=== PATIENT | female | born 1990 | race Caucasian/White ===

== ENCOUNTER 2018-03-09 03:30 | Emergency (ER) | payer MEDICAID ==
--- NOTE | 2018-03-09 03:51 | EDPHY ---
H & P Stated Complaint: N,V,ACID REFLUS NOT SLEEPING, 20 WKS Time Seen by Provider: 03/09/18 03:51 HPI/ROS: HPI CHIEF COMPLAINT: Hyperemesis gravidarum. HISTORY OF PRESENT ILLNESS: 28-year-old female presents emergency room nausea vomiting. She is currently 20 weeks . This is her 4th . She does not have any living children. She presents emergency room stating that she has had nausea vomiting in since 5 weeks. However the past few days it has gotten worse. Persistent vomiting no bile no blood. Denies chest pain or shortness of breath, denies fever, denies urinary symptoms, denies vaginal discharge or vaginal bleeding. No significant abdominal pain. Could not sleep last night. [facility]: [facility]. Past Medical History: Denies medical history except hyperemesis gravidarum Past Surgical History: No recent surgical history Social History: Denies daily use drugs alcohol tobacco. Family History: Noncontributory ROS REVIEW OF SYSTEMS: 10 Systems were reviewed and negative with the exception of the elements mentioned in the history of present illness. Exam Constitutional nontoxic no acute distress but noted be tachycardic at triage triage nursing summary reviewed, vital signs reviewed, awake/alert. Eyes normal conjunctivae and sclera, EOMI, PERRLA. HENT normal inspection, atraumatic, moist mucus membranes, no epistaxis, neck supple/ no meningismus, no raccoon eyes. Respiratory clear to auscultation bilaterally, normal breath sounds, no respiratory distress, no wheezing. Cardiovascular tachycardia, regular rhythm, no murmur, no edema, distal pulses normal. Gastrointestinal gravid uterus approximately umbilicus nontender, soft, non- tender, no rebound, no guarding, normal bowel sounds, no distension, no pulsatile mass. Genitourinary no CVA tenderness. Musculoskeletal no midline vertebral tenderness, full range of motion, no calf swelling, no tenderness of extremities, no meningismus, good pulses, neurovascularly intact. Skin pink, warm, & dry, no rash, skin atraumatic. Neurologic awake, alert and oriented x 3, AAOx3, moves all 4 extremities equally, motor intact, sensory intact, CN II-XII intact, normal cerebellar, normal vision, normal speech. Psychiatric normal mood/affect. Heme/Lymph/Immune no lymphadenopathy. Differential Diagnosis: Includes but is not limited to in a particular order acute dehydration electrolyte disturbance, hyperemesis gravidarum count, infection, UTI nausea vomiting . Medical Decision Making: Plan for this patient IV establishment IV fluid bolus 2 L normal saline, IV Zofran for nausea, check basic blood work, urinalysis and re-evaluate. Re-evaluation: 0603: Patient re-evaluated. Patient in no acute distress. Abdomen soft nontender. She has not had any vomiting here. 0632: Patient re-evaluate feeling much better. She received IV fluids. Nausea medication. She has not had any vomiting here. She has been able tolerate p.o.. Her urinalysis reviewed is a dirty catch. Will obtain a clean sample. I do feel that she can be discharged safely. Follow up with her OBGYN. Abdomen is soft nontender. Return precautions discussed with the patient. Clinical diagnosis is a his hyperemesis gravidarum. Dehydration. Return if worse. Phenergan prescription and Phenergan suppositories. Source: Patient - Personal History LMP (Females 10-55): EDC: 07/23/18 Current Tetanus/Diphtheria Vaccine: Yes Current Tetanus Diphtheria and Acellular Pertussis (TDAP): Yes - Medical/Surgical History Hx Asthma: No Hx Chronic Respiratory Disease: No Hx Diabetes: No Hx Cardiac Disease: No Hx Renal Disease: No Hx Cirrhosis: No Hx Alcoholism: No Hx HIV/AIDS: No Hx Splenectomy or Spleen Trauma: No Other PMH: THYROID NODULE REMOVED - Social History Smoking Status: Former smoker Constitutional: Initial Vital Signs Temperature (C) 36.7 C 03/09/18 03:32 Heart Rate 128 H 03/09/18 03:32 Respiratory Rate 18 03/09/18 03:32 Blood Pressure 111/78 03/09/18 03:32 O2 Sat (%) 95 03/09/18 03:32 O2 Delivery Mode Room Air Allergies/Adverse Reactions: No Known Allergies Allergy (Verified 03/09/18 03:35) Home Medications: Medication Instructions Recorded Vits96/Iron Fum/Folic 1 each PO 03/09/18 [ Tablet] Promethazine 25Mg Supp Prepk#4 1 btl TAKEHOME BID #1 btl 03/09/18 [Phenergan 25Mg Supp Prepack#4] Promethazine HCl [Phenergan 25mg 25 mg PO BID #10 tab 03/09/18 (*)] diphenhydrAMINE HCL [Unisom] 50 mg PO DAILY 03/09/18 Medical Decision Making - Data Points Laboratory Results: Laboratory Results 03/09/18 03:50 03/09/18 03:50 03/09/18 03/09/18 03/09/18 06:00 03:50 03:50 WBC 16.39 10^3/uL H 10^3/uL (3.80-9.50) RBC 4.72 10^6/uL 10^6/uL (4.18-5.33) Hgb 14.6 g/dL g/dL (12.6-16.3) Hct 41.7 % % (38.0-47.0) MCV 88.3 fL fL (81.5-99.8) MCH 30.9 pg pg (27.9-34.1) MCHC 35.0 g/dL g/dL (32.4-36.7) RDW 13.1 % % (11.5-15.2) Plt Count 295 10^3/uL 10^3/uL (150-400) MPV 9.7 fL fL (8.7-11.7) Neut % (Auto) 85.6 % H % (39.3-74.2) Lymph % (Auto) 8.5 % L % (15.0-45.0) [place] % (Auto) 5.2 % % (4.5-13.0) Eos % (Auto) 0.1 % L % (0.6-7.6) Baso % (Auto) 0.2 % L % (0.3-1.7) Nucleat RBC Rel Count 0.0 % % (0.0-0.2) Absolute Neuts (auto) 14.03 10^3/uL H 10^3/uL (1.70-6.50) Absolute Lymphs (auto) 1.39 10^3/uL 10^3/uL (1.00-3.00) Absolute Monos (auto) 0.85 10^3/uL H 10^3/uL (0.30-0.80) Absolute Eos (auto) 0.01 10^3/uL L 10^3/uL (0.03-0.40) Absolute Basos (auto) 0.04 10^3/uL 10^3/uL (0.02-0.10) Absolute Nucleated RBC 0.00 10^3/uL 10^3/uL (0-0.01) Immature Gran % 0.4 % % (0.0-1.1) Immature Gran # 0.07 10^3/uL 10^3/uL (0.00-0.10) Sodium 139 mEq/L mEq/L (135-145) Potassium 3.5 mEq/L mEq/L (3.3-5.0) Chloride 105 mEq/L mEq/L (97-110) Carbon Dioxide 18 mEq/l L mEq/l (22-31) Anion Gap 16 mEq/L H mEq/L (6-14) BUN 9 mg/dL mg/dL (7-23) Creatinine 0.5 mg/dL L mg/dL (0.6-1.0) Estimated GFR > 60 Glucose 109 mg/dL H mg/dL (70-100) Calcium 10.2 mg/dL mg/dL (8.5-10.4) Total Bilirubin 1.1 mg/dL mg/dL (0.1-1.4) Conjugated Bilirubin 0.2 mg/dL mg/dL (0.0-0.5) Unconjugated Bilirubin 0.9 mg/dL mg/dL (0.0-1.1) AST 18 IU/L IU/L (14-46) ALT 19 IU/L IU/L (9-52) Alkaline Phosphatase 69 IU/L IU/L (38-126) Total Protein 8.0 g/dL g/dL (6.3-8.2) Albumin 4.5 g/dL g/dL (3.5-5.0) Lipase 47 IU/L IU/L (23-300) Urine Color YELLOW Urine Appearance MODERATELY TURBID Urine pH 5.0 (5.0-7.5) Ur Specific [place] 1.027 (1.002-1.030) Urine Protein 2+ H (NEGATIVE) Urine Ketones 2+ H (NEGATIVE) Urine Blood NEGATIVE (NEGATIVE) Urine Nitrate NEGATIVE (NEGATIVE) Urine Bilirubin NEGATIVE (NEGATIVE) Urine Urobilinogen NEGATIVE EU EU (0.2-1.0) Ur Leukocyte Esterase 1+ H (NEGATIVE) Urine RBC NONE SEEN /hpf /hpf (0-3) Urine WBC 50-182 /hpf H /hpf (0-3) Ur Epithelial Cells 3+ /lpf H /lpf (NONE-1+) Urine Mucus 4+ /lpf H /lpf (NONE-1+) Urine Glucose 1+ H (NEGATIVE) Medications Given: Discontinued Medications Al Hydroxide/Mg Hydroxide (Maalox Susp) 30 ml PO EDNOW ONE Stop: 03/09/18 04:17 Last Admin: 03/09/18 04:27 Dose: 30 ml Sodium Chloride (Ns) 1,000 mls @ 0 mls/hr IV EDNOW ONE; Wide Open PRN Reason: Protocol Stop: 03/09/18 03:54 Last Admin: 03/09/18 04:02 Dose: 1,000 mls Sodium Chloride (Ns) 1,000 mls @ 0 mls/hr IV EDNOW ONE; Wide Open PRN Reason: Protocol Stop: 03/09/18 03:54 Last Admin: 03/09/18 04:02 Dose: 1,000 mls Lidocaine (Lidocaine 2% Viscous) 5 ml PO EDNOW ONE Stop: 03/09/18 04:18 Last Admin: 03/09/18 04:28 Dose: 5 ml Ondansetron HCl (Zofran) 4 mg IVP EDNOW ONE Stop: 03/09/18 03:54 Last Admin: 03/09/18 04:03 Dose: 4 mg Departure - Departure Disposition: Home, Routine, Self-Care Clinical Impression: Hyperemesis gravidarum Condition: Good Instructions: Hyperemesis Gravidarum (ED) Additional Instructions: 1. Please follow up with your OBGYN 2. Return emergency room if there is worsening nausea vomiting abdominal pain fever worsening symptoms. 3. Phenergan. Referrals: NONE *PRIMARY CARE P,. [Primary Care Provider] - As per Instructions Michelle Washington MD [Medical Doctor] - As per Instructions Prescriptions: Promethazine 25Mg Supp Prepk#4 [Phenergan 25Mg Supp Prepack#4] 1 btl TAKEHOME BID #1 btl Promethazine HCl [Phenergan 25mg (*)] 25 mg PO BID #10 tab
[2018-03-09] MEDS ORDERED: NS 1,000 ML IV ONE ×2 (03:53)
[2018-03-09] MEDS ORDERED: ONDANSETRON 4 MG/2 ML VIAL IVP ONE (03:53)
[2018-03-09 04:03] LABS: PLATELET COUNT 295 10^3/uL (150-400)
[2018-03-09] MEDS ORDERED: MAG HYDROX/AL HYDROX/SIMETH 30 ML UDCUP PO ONE (04:16)
[2018-03-09] MEDS ORDERED: LIDOCAINE 2% VISCOUS 15 ML UDCUP PO ONE (04:17)
[2018-03-09] MEDS ORDERED: LIDOCAINE 2% VISCOUS 15 ML UDCUP ONE (04:23)
[2018-03-09] MEDS ORDERED: HYOSCYAMINE SULFATE 0.125 MG TAB ONE (04:23)
[2018-03-09] MEDS ORDERED: MAG HYDROX/AL HYDROX/SIMETH 30 ML UDCUP ONE (04:23)
[2018-03-09 07:02] VITALS: BP 119/81
== END 2018-03-09 07:08 | disposition home or self-care (01) ==
DX: O21.0 Mild hyperemesis gravidarum (principal); E86.0 Dehydration; Z3A.20 20 weeks gestation of pregnancy
CPT/HCPCS: 96374; J2405

== ENCOUNTER 2018-04-03 16:27 | Emergency (ER) | payer MEDICAID ==
[2018-04-03] MEDS ORDERED: NS 1,000 ML IV ONE ×2 (17:41)
[2018-04-03] MEDS ORDERED: PROMETHAZINE HCL 25 MG/ML INJ IVP ONE (17:42)
--- NOTE | 2018-04-03 17:42 | EDPHY ---
H & P Stated Complaint: n/v, 23 weeks preg Time Seen by Provider: 04/03/18 17:37 HPI/ROS: HPI: This is a 28-year-old female who presents with Chief Complaint: n/v, 23 weeks preg Location: GI Quality: Nausea, vomiting Duration: 24 hr Signs and Symptoms: no fever, + nausea, + vomiting, no hematemesis, no blood in stool, no abdominal bloating, no diarrhea, no back pain, no urinary symptoms, no vaginal bleeding/discharge, no indigestion, no chest pain, no shortness of breath, no abdominal pain Timing: Acute on chronic Severity: Moderate Context: Patient is 23 weeks , presents with intractable nausea and vomiting over the last 24 hr. Patient reports that she is vomiting ever hour. She has not ate or drank anything in 24 hr. Patient has only urinated once. Was seen in this emergency room on 03/09/2018 and received IV fluids and IV promethazine. He was given prescription for promethazine but when her significant other went to fill it at the pharmacy they told her that they were unable to fill it as "it was a hospital prescription." Patient reports that she has no fever, vaginal bleeding, vaginal discharge, abdominal pain. She reports that over the last several weeks she has had come to the emergency room several times for hyperemesis gravidarum. She has an appointment tomorrow at the [facility]. Blood type is B-positive. Taking vitamins. Modifying Factors: Comment: ROS: A comprehensive 10 system review of systems is otherwise negative aside from elements mentioned in the history of present illness. MEDICAL/SURGICAL/SOCIAL HISTORY: Medical history: Generally healthy. Does not take any regular medications. Surgical history: Thyroidectomy Social history: Former smoker. Denies drug use. Family history noncontributory. CONSTITUTIONAL: Extremely well-appearing and nontoxic adult white female, holding emesis basin with yellowish green emesis in it; awake and alert, no obvious distress HEENT: Atraumatic and normocephalic, PERRL, EOMI. Nares patent; no rhinorrhea; no nasal mucosal edema. Tympanic membranes clear. Oropharynx clear, no exudate and moist pink mucosa. Airway patent. No lymphadenopathy. No meningismus. Cardiovascular: Normal S1/S2, regular rate, regular rhythm, without murmur rub or gallop. PULMONARY/CHEST: Symmetrical and nontender. Clear to auscultation bilaterally. Good air movement. No accessory muscle usage. ABDOMEN: Soft, gravid, nontender, no rebound, no guarding, no peritoneal signs , no masses or organomegaly. No CVAT. EXTREMITIES: 2/2 pulses, strength 5/5, no deformities, no clubbing, no cyanosis or edema. NEUROLOGICAL: no focal neuro deficits. GCS 15. SKIN: Warm and dry, no erythema. no rash. Good capillary refill. Source: Patient, Old records Exam Limitations: No limitations - Personal History LMP (Females 10-55): Current Tetanus/Diphtheria Vaccine: Yes Current Tetanus Diphtheria and Acellular Pertussis (TDAP): Yes - Medical/Surgical History Hx Asthma: No Hx Chronic Respiratory Disease: No Hx Diabetes: No Hx Cardiac Disease: No Hx Renal Disease: No Hx Cirrhosis: No Hx Alcoholism: No Hx HIV/AIDS: No Hx Splenectomy or Spleen Trauma: No Other PMH: THYROID NODULE REMOVED - Social History Smoking Status: Former smoker Constitutional: Initial Vital Signs Temperature (C) 36.7 C 04/03/18 16:39 Heart Rate 81 04/03/18 16:39 Respiratory Rate 16 04/03/18 16:39 Blood Pressure 127/92 H 04/03/18 16:39 O2 Sat (%) 100 04/03/18 16:39 O2 Delivery Mode Room Air Allergies/Adverse Reactions: No Known Allergies Allergy (Verified 04/03/18 16:38) Home Medications: Medication Instructions Recorded Vits96/Iron Fum/Folic 1 each PO 03/09/18 [ Tablet] Nitrofurantoin Monohyd/M-Cryst 100 mg PO BID 7 Days capsule 04/03/18 [Macrobid 100 mg Capsule] Promethazine HCl 25 mg PO Q8 PRN #12 tablet 04/03/18 Medical Decision Making ED Course/Re-evaluation: Vital signs reviewed and stable upon arrival. No systemic signs. IV access and laboratory studies along with urinalysis obtained. Abdomen is soft and nontender. Doubt surgical process. No imaging indicated. Given 2 L normal saline and IV promethazine 12.5 mg 1815: Notified by RN that heart tones 130s Labs reviewed and no hypokalemia/Acute kidney injury. WBC 14 K likely reactive. No signs of anemia. Urinalysis shows ketones, WBCs, 1+ bacteria; trace LE; sent for urine culture; started on Macrobid 2000: Reassessed patient who is drinking fluids at bedside. Discuss bacteria in urine and Macrobid prescription. Given Phenergan prepack and prescription for same. Patient will follow up with OBGYN tomorrow as previously directed. No signs of sepsis/pyelonephritis. This patient was seen under the supervision of my secondary supervising physician. I evaluated care for this patient independently. Discussed this patient with Dr. Carranza. Differential Diagnosis: Differential diagnosis includes but is not limited to miscarriage, hyperemesis gravidarum, gastroenteritis, obstruction, pelvic inflammatory disease, electrolyte imbalance, appendicitis, pancreatitis, biliary disease, pyelonephritis. - Data Points Laboratory Results: Laboratory Results 04/03/18 17:44 04/03/18 17:44 04/03/18 04/03/18 04/03/18 19:15 17:44 17:44 WBC 14.51 10^3/uL H 10^3/uL (3.80-9.50) RBC 4.58 10^6/uL 10^6/uL (4.18-5.33) Hgb 14.4 g/dL g/dL (12.6-16.3) Hct 40.9 % % (38.0-47.0) MCV 89.3 fL fL (81.5-99.8) MCH 31.4 pg pg (27.9-34.1) MCHC 35.2 g/dL g/dL (32.4-36.7) RDW 13.2 % % (11.5-15.2) Plt Count 260 10^3/uL 10^3/uL (150-400) MPV 10.1 fL fL (8.7-11.7) Neut % (Auto) 92.7 % H % (39.3-74.2) Lymph % (Auto) 5.5 % L % (15.0-45.0) [place] % (Auto) 1.0 % L % (4.5-13.0) Eos % (Auto) 0.0 % L % (0.6-7.6) Baso % (Auto) 0.2 % L % (0.3-1.7) Nucleat RBC Rel Count 0.0 % % (0.0-0.2) Absolute Neuts (auto) 13.45 10^3/uL H 10^3/uL (1.70-6.50) Absolute Lymphs (auto) 0.80 10^3/uL L 10^3/uL (1.00-3.00) Absolute Monos (auto) 0.14 10^3/uL L 10^3/uL (0.30-0.80) Absolute Eos (auto) 0.00 10^3/uL L 10^3/uL (0.03-0.40) Absolute Basos (auto) 0.03 10^3/uL 10^3/uL (0.02-0.10) Absolute Nucleated RBC 0.00 10^3/uL 10^3/uL (0-0.01) Immature Gran % 0.6 % % (0.0-1.1) Immature Gran # 0.09 10^3/uL 10^3/uL (0.00-0.10) Sodium 137 mEq/L mEq/L (135-145) Potassium 3.8 mEq/L mEq/L (3.3-5.0) Chloride 106 mEq/L mEq/L (97-110) Carbon Dioxide 18 mEq/l L mEq/l (22-31) Anion Gap 13 mEq/L mEq/L (6-14) BUN 9 mg/dL mg/dL (7-23) Creatinine 0.5 mg/dL L mg/dL (0.6-1.0) Estimated GFR > 60 Glucose 142 mg/dL H mg/dL (70-100) Calcium 10.2 mg/dL mg/dL (8.5-10.4) Urine Color YELLOW Urine Appearance HAZY Urine pH 6.0 (5.0-7.5) Ur Specific [place] 1.031 H (1.002-1.030) Urine Protein 2+ H (NEGATIVE) Urine Ketones 2+ H (NEGATIVE) Urine Blood NEGATIVE (NEGATIVE) Urine Nitrate NEGATIVE (NEGATIVE) Urine Bilirubin NEGATIVE (NEGATIVE) Urine Urobilinogen NEGATIVE EU EU (0.2-1.0) Ur Leukocyte Esterase TRACE H (NEGATIVE) Urine RBC 3-5 /hpf H /hpf (0-3) Urine WBC 25-50 /hpf H /hpf (0-3) Ur Epithelial Cells 2+ /lpf H /lpf (NONE-1+) Ur Renal Epithelial Cell TRACE /hpf H /hpf (NONE SEEN) Urine Bacteria 1+ /hpf H /hpf (NONE SEEN) Urine Mucus 4+ /lpf H /lpf (NONE-1+) Urine Glucose 2+ H (NEGATIVE) Medications Given: Discontinued Medications Sodium Chloride (Ns) 1,000 mls @ 0 mls/hr IV ONCE ONE; Wide Open PRN Reason: Protocol Stop: 04/03/18 17:42 Last Admin: 04/03/18 17:47 Dose: 1,000 mls Sodium Chloride (Ns) 1,000 mls @ 0 mls/hr IV ONCE ONE; Wide Open PRN Reason: Protocol Stop: 04/03/18 17:42 Last Admin: 04/03/18 17:47 Dose: 1,000 mls Nitrofurantoin (Macrobid 100mg Prepack#2) 1 btl TAKEHOME EDNOW ONE PRN Reason: Protocol Stop: 04/03/18 19:42 Last Admin: 04/03/18 20:35 Dose: 1 btl Promethazine HCl (Phenergan) 12.5 mg IVP ONCE ONE Stop: 04/03/18 17:43 Last Admin: 04/03/18 17:48 Dose: 12.5 mg Promethazine HCl (Phenergan 25 Mg Prepack #4) 1 btl TAKEHOME EDNOW ONE Stop: 04/03/18 20:03 Last Admin: 04/03/18 20:34 Dose: 1 btl Departure - Departure Disposition: Home, Routine, Self-Care Clinical Impression: Nausea/vomiting in UTI in Qualifiers: Trimester: second trimester Qualified Code(s): O23.42 - Unspecified infection of urinary tract in , second trimester Condition: Good Instructions: Nausea and Vomiting in (ED), Urinary Tract Infection in (ED) Additional Instructions: Consume a minimum of 8-10 glasses of water or electrolyte fluid replacement drinks that include Gatorade, Powerade, Pedialyte. Eat a bland diet for the next 48 hours and then slowly advance as tolerated. Take Phenergan 1 tab every 6 hours as needed for nausea, vomiting. Take Macrobid as directed for urinary tract infection. Do not skip a dose. Keep follow-up appointment with OBGYN tomorrow. Referrals: PCP Not In,Dictionary [Medical Doctor] - As per Instructions ([facility]) Prescriptions: Nitrofurantoin Monohyd/M-Cryst [Macrobid 100 mg Capsule] 100 mg PO BID 7 Days capsule Promethazine HCl 25 mg PO Q8 PRN #12 tablet PRN Reason: Nausea/Vomiting, Use 1st
[2018-04-03 18:07] LABS: PLATELET COUNT 260 10^3/uL (150-400)
[2018-04-03] MEDS ORDERED: NITROFURANTOIN 100MG PREPACK#2 BTL TAKEHOME ONE (19:41)
[2018-04-03] MEDS ORDERED: PROMETHAZINE 25 MG PREPACK #4 BTL TAKEHOME ONE (20:02)
[2018-04-03 20:32] VITALS: BP 105/50
== END 2018-04-03 20:37 | disposition home or self-care (01) ==
DX: O21.9 Vomiting of pregnancy, unspecified (principal); O23.42 Unspecified infection of urinary tract in pregnancy, second trimester; Z3A.23 23 weeks gestation of pregnancy
CPT/HCPCS: 96374; J2550

== ENCOUNTER 2018-05-06 10:40 | Emergency (ER) | payer MEDICAID ==
--- NOTE | 2018-05-06 11:04 | EDPHY ---
H & P Stated Complaint: n/v Time Seen by Provider: 05/06/18 11:04 - Personal History LMP (Females 10-55): Current Tetanus/Diphtheria Vaccine: Yes Current Tetanus Diphtheria and Acellular Pertussis (TDAP): Yes - Medical/Surgical History Hx Asthma: No Hx Chronic Respiratory Disease: No Hx Diabetes: No Hx Cardiac Disease: No Hx Renal Disease: No Hx Cirrhosis: No Hx Alcoholism: No Hx HIV/AIDS: No Hx Splenectomy or Spleen Trauma: No Other PMH: THYROID NODULE REMOVED - Social History Smoking Status: Former smoker Constitutional: Initial Vital Signs Temperature (C) 36.4 C 05/06/18 10:43 Heart Rate 83 05/06/18 10:43 Respiratory Rate 16 05/06/18 10:43 Blood Pressure 130/88 H 05/06/18 10:43 O2 Sat (%) 100 05/06/18 10:43 O2 Delivery Mode Room Air Allergies/Adverse Reactions: No Known Allergies Allergy (Verified 05/06/18 10:42) Home Medications: Medication Instructions Recorded Vits96/Iron Fum/Folic 1 each PO 03/09/18 [ Tablet] Promethazine HCl 25 mg PO Q8 PRN #12 tablet 04/03/18 Medical Decision Making ED Course/Re-evaluation: CHIEF COMPLAINT: Nausea and vomiting HISTORY OF PRESENT ILLNESS: 28-year-old 30 week with persistent hyperemesis gravidarum. She has been admitted 3 times in the hospital during this . She is here today because she has and fluid in 24 hr could she keeps throwing up despite her outpatient treatments. She has tried Phenergan during her admissions with some success but has not been able to obtain this medication at home. She is followed by [facility] for her pre-mateo care. The patient states she was last able to drink water yesterday, and has not had food in two days. She denies fever, cough or cold symptoms, diarrhea, or other associated symptoms. REVIEW OF SYSTEMS: A comprehensive 10 system review of systems is otherwise negative aside from elements mentioned in the history of present illness and medical decision making. PHYSICAL EXAM: HR, BP, O2 Sat, RR. Temp noted General Appearance: Alert, well hydrated, appropriate, and non-toxic appearing. Head: Atraumatic without scalp tenderness or obvious injury Eyes: Pupils equal, round, reactive to light and accommodation, EOMI, no trauma , no injection. Ears: Clear bilaterally, no perforation, normal landmarks Nose: Atraumatic, no rhinorrhea, clear. Throat: There is no erythema or exudates, no lesions, normal tonsils, mucus membranes moist. Neck: Supple, 2+ carotid upstroke, nontender, no lymphadenopathy. Respiratory: No retractions, no distress, no wheezes, and no accessory muscle use. Lungs are clear to auscultation bilaterally. Cardiovascular: Regular rate and rhythm, no murmurs, rubs, or gallops. Bilateral carotid, radial, dorsalis pedis, and posterior tibial pulses intact. Good capillary refill all extremities. Gastrointestinal: Abdomen is soft, nontender, non-distended, no masses, no rebound, no guarding, no peritoneal signs. Musculoskeletal: Normal active ROM of all extremities, atraumatic. Neurological: Alert, appropriate, and interactive. The patient has normal DTRs and non-focal cranial nerves, motor, sensory, and cerebellar exam. Skin: No rashes, good turgor, no nodules on palpation. Past medical history: Hyperemesis gravidarum Past surgical history: Thyroid nodule removed Family history: Noncontributory. Social history: Single. Lives in [place]. Does not abuse tobacco, drugs, or alcohol. DIFFERENTIAL DIAGNOSIS: The differential diagnosis for the patient's nausea and vomiting included but was not limited to hyperemesis gravidarum, gastroenteritis, gastritis, appendicitis, and medication side effect. MEDICAL DECISION MAKIN28 y/o female who is 30 weeks presents with hyperemesis gravidarum. Plan to hydrate and provide antiemetics. Patient has been admitted several times over the course of her and would prefer treatment for fluids and antiemetics at home if possible vs readmission to the hospital. Plan to consult with case management and with [facility]. Plan for lab work including chemistries to evaluate for acute electrolyte abnormalities. Reviewed laboratory results. Chemistries within normal limits. BGL 110. This patient is feeling much better. She is well-hydrated. She is urinating. She is no longer nauseated. We have arranged for home IV fluids to start to occur on morning. I have talked Keily at the nurse [facility] facility for [place] and she will help to write the orders for the fluids and antiemetics starting Thursday morning. This patient will have visiting nurses come in on a daily basis. This was set up through our case management. Additionally, the patient knows she should come back here if she is having and worsening trouble. - Data Points Laboratory Results: 05/06/18 11:16 POC Hgb 13.9 gm/dL gm/dL (12.6-16.3) POC Hct 41 % % (38-47) POC Sodium 141 mEq/L mEq/L (135-145) POC Potassium 3.4 mEq/L mEq/L (3.3-5.0) POC Chloride 109 mEq/L mEq/L (97-110) POC BUN 4 mg/dL L mg/dL (7-23) POC Creatinine 0.5 mg/dL L mg/dL (0.6-1.0) POC Glucose 110 mg/dL H mg/dL (70-100) Medications Given: Discontinued Medications Sodium Chloride (Ns) 1,000 mls @ 0 mls/hr IV EDNOW ONE; Wide Open PRN Reason: Protocol Stop: 05/06/18 11:12 Last Admin: 05/06/18 11:16 Dose: 1,000 mls Sodium Chloride (Ns) 1,000 mls @ 0 mls/hr IV EDNOW ONE; Wide Open PRN Reason: Protocol Stop: 05/06/18 11:12 Last Admin: 05/06/18 11:17 Dose: 1,000 mls Promethazine HCl (Phenergan) 12.5 mg IVP EDNOW ONE Stop: 05/06/18 11:12 Last Admin: 05/06/18 11:17 Dose: 12.5 mg Point of Care Test Results: Chemistry 05/06/18 11:16 POC Sodium 141 mEq/L mEq/L (135-145) POC Potassium 3.4 mEq/L mEq/L (3.3-5.0) POC Chloride 109 mEq/L mEq/L (97-110) POC BUN 4 mg/dL L mg/dL (7-23) POC Creatinine 0.5 mg/dL L mg/dL (0.6-1.0) POC Glucose 110 mg/dL H mg/dL (70-100) ISTAT H&H 05/06/18 11:16 POC Hgb 13.9 gm/dL gm/dL (12.6-16.3) POC Hct 41 % % (38-47) Departure - Departure Disposition: Home, Routine, Self-Care Clinical Impression: Nausea/vomiting in , Hyperemesis gravidarum Condition: Good Instructions: Nausea and Vomiting in (ED) Additional Instructions: [facility] will help coordinate your home IV fluids and anti-nausea medications for the remainder of your . Return for uncontrollable vomiting, fever, abdominal pain, or further concerns or worsening of condition. Referrals: Aditi Melendez MD [Medical Doctor] - As per Instructions Report Scribed for: Jesus Hopper Report Scribed by: Chela Sol Date of Report: 05/06/18 Time of Report: 12:11
[2018-05-06] MEDS ORDERED: PROMETHAZINE HCL 25 MG/ML INJ IVP ONE (11:11)
[2018-05-06] MEDS ORDERED: NS 1,000 ML IV ONE ×2 (11:11)
[2018-05-06 13:21] VITALS: BP 111/79
--- NOTE | 2018-05-06 21:32 | ASMTCMCOM ---
CM Note CM Note Notes: Patient is currently staying at [facility] (home for women) and has visited this ED frequently for hyper-emesis (see ED report). This CM contacted Isa at [facility] regarding IV therapy at home and confirmed that this could be arranged on a scheduled basis. This was discussed with Dr. Hopper who contacted Dr. Melendez. Orders for HH received from PUBL[employer] SAL[employer] REPRESENTATIVE. Patient attempted to contact [facility] fro return transporation but they were unavailable to provide transportation at this time. Cab voucher #[id number] and [employer] called for courtesy transportation back to [facility]. Patient very pleasant and appreciative of care and support. Date Signed: 05/06/2018 02:08 PM Electronically Signed By:Traci Mata RN
[2018-05-07] MEDS ORDERED: ONDANSETRON 4 MG/2 ML VIAL ONE (05:21)
[2018-05-07] MEDS ORDERED: LR 1,000 ML IV ONE (05:30)
[2018-05-07] MEDS ORDERED: ONDANSETRON 4 MG/2 ML VIAL IVP ONE (05:30)
== END 2018-05-06 13:40 | disposition home or self-care (01) ==
LOC: FLD 05-07 04:35 → UNDOADMOB 05-07 04:35
DX: O21.2 Late vomiting of pregnancy (principal); O21.0 Mild hyperemesis gravidarum; Z3A.30 30 weeks gestation of pregnancy
CPT/HCPCS: 80307; 82435-PO; 82565-PO; 82947-PO; 84132-PO; 84295-PO; 84520-PO; 85014-PO; 96374; G0480; J2405; J2550

== ENCOUNTER 2018-05-07 04:35 | Observation (INO) | payer MEDICAID ==
[2018-05-07] MEDS ORDERED: LANSOPRAZOLE SUSP 30MG/10ML UDSYR (Adult) PO SCH (10:00)
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
[2018-05-07 11:05] LABS: PLATELET COUNT 260 10^3/uL (150-400)
== END 2018-05-07 19:00 | disposition home or self-care (01) ==
LOC: FLD 04:35
PROVIDERS: ADMIT Advanced Practice Midwife; ATTEND Advanced Practice Midwife
DX: O21.2 Late vomiting of pregnancy (principal); O99.323 Drug use complicating pregnancy, third trimester; F12.90 Cannabis use, unspecified, uncomplicated; Z3A.29 29 weeks gestation of pregnancy; Z91.410 Personal history of adult physical and sexual abuse
CPT/HCPCS: 59025; G0378; 80307; 82435-PO; 82565-PO; 82947-PO; 84132-PO; 84295-PO; 84520-PO; 85014-PO; 96374; G0480; J2405; J2550

== ENCOUNTER 2018-07-29 02:10 | Inpatient (IN) | payer MEDICAID ==
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
[2018-07-29] MEDS ORDERED: IBUPROFEN 600 MG TAB PO PRN (02:48)
[2018-07-29] MEDS ORDERED: OXYTOCIN/RINGERS LACTATE 1,000 ML IV PRN (02:48)
[2018-07-29] MEDS ORDERED: LIDOCAINE 1% 300 MG/30 ML SDV SC PRN (02:48)
[2018-07-29] MEDS ORDERED: LR 1,000 ML IV PRN (02:48)
[2018-07-29] MEDS ORDERED: AMMONIA AROMATIC 1 EACH AMP IH PRN (02:48)
[2018-07-29] MEDS ORDERED: MISOPROSTOL 200 MCG TAB PO PRN (02:48)
[2018-07-29] MEDS ORDERED: TERBUTALINE SULFATE 1 MG/ML VIAL IV PRN (02:48)
[2018-07-29] MEDS ORDERED: OLIVE OIL 118 ML BTL MISC PRN (02:48)
[2018-07-29] MEDS ORDERED: EPSOM SALT 454 GM TP PRN (02:48)
[2018-07-29] MEDS ORDERED: diphenhydrAMINE 25 MG CAP PO PRN (02:51)
[2018-07-29 04:34] LABS: PLATELET COUNT 202 10^3/uL (150-400)
[2018-07-29] MEDS ORDERED: AMMONIA AROMATIC 1 EACH AMP IH ONE (05:03)
[2018-07-29] MEDS ORDERED: LIDOCAINE 1% 300 MG/30 ML SDV ONE (05:03)
[2018-07-29] MEDS ORDERED: MISOPROSTOL 200 MCG TAB ONE (05:03)
[2018-07-29] MEDS ORDERED: OLIVE OIL 118 ML BTL ONE (05:03)
[2018-07-29] MEDS ORDERED: TERBUTALINE SULFATE 1 MG/ML VIAL ONE (05:03)
[2018-07-29] MEDS ORDERED: OXYTOCIN 10 UNIT/ML VIAL ONE (05:03)
[2018-07-29] MEDS ORDERED: LR 500 ML IV PRN (05:17)
--- NOTE | 2018-07-29 05:17 | OBPROG ---
Labor Progress Note Assessment/Plan: Assessment: Plan: Subjective/Intrapartum Course: 07/29/18 05:12 Pt resting at this time, contractions have spaced out a bit since IV hydration provided. Objective: 07/29/18 03:15 07/29/18 03:12 Patient ABO/Rh B POSITIVE 07/29/18 03:12 Uric Acid 4.0 mg/dL (2.5-6.8) 07/29/18 03:12 Total Bilirubin 0.3 mg/dL (0.1-1.4) 07/29/18 03:12 Conjugated Bilirubin 0.2 mg/dL (0.0-0.5) 07/29/18 03:12 Unconjugated Bilirubin 0.1 mg/dL (0.0-1.1) 07/29/18 03:12 AST 19 IU/L (14-46) 07/29/18 03:12 ALT 22 IU/L (9-52) 07/29/18 03:12 Lactate Dehydrogenase 540 IU/L (313-618) 07/29/18 03:12 - SVE Dilation (cm): 3 Effacement (%): 75 Station: -1 Membranes: Intact (amnisure negative) - Contraction Pattern Assessment Current Contraction Pattern: Irregular (5-8 minutes, mild) CNM Assessment - Uterine Assessment Contraction Strength: Mild Uterine Resting Tone: Palpates Soft (desires induction of labor today) Oxytocin Orders Assessment - Pre-Induction/Augmentation Assessment Gestational Age: 40 week(s) and 6 day(s) ICD10 Worksheet Patient Problems: Problems Problem Status Onset Cannabinoid hyperemesis syndrome Acute Supervision of normal in third trimester Acute
[2018-07-29] MEDS ORDERED: OXYTOCIN/RINGERS LACTATE 500 ML IV SCH (05:30)
--- NOTE | 2018-07-29 08:30 | OBPROG ---
Labor Progress Note Assessment/Plan: Assessment: Plan: 07/29/18 08:30 Latent labor; probable SROM P) Start pitocin augmentation Avoid VE's unless indicated Epidural if desired Anticipate Subjective/Intrapartum Course: 07/29/18 05:12 Pt resting at this time, contractions have spaced out a bit since IV hydration provided. 07/29/18 08:27 Was able to get a little sleep last night. In the bathtub now. Contractions q 6 to 8 minutes, uncomfortable but not having to breath through them. States she felt another gush of fluid about an hour ago. Had reviewed with Cathy early this morning pitocin augmentation. Given elevated blood pressures, probable SROM, and post dates reassured that this is a good plan. Intends on waiting to get epidural as long as possible but ultimately thinks she will want one. Report minimal sleep since Saturday. Objective: 07/29/18 03:15 07/29/18 03:12 Patient ABO/Rh B POSITIVE 07/29/18 03:12 Uric Acid 4.0 mg/dL (2.5-6.8) 07/29/18 03:12 Total Bilirubin 0.3 mg/dL (0.1-1.4) 07/29/18 03:12 Conjugated Bilirubin 0.2 mg/dL (0.0-0.5) 07/29/18 03:12 Unconjugated Bilirubin 0.1 mg/dL (0.0-1.1) 07/29/18 03:12 AST 19 IU/L (14-46) 07/29/18 03:12 ALT 22 IU/L (9-52) 07/29/18 03:12 Lactate Dehydrogenase 540 IU/L (313-618) 07/29/18 03:12 VSS WNL - SVE Membranes: Intact (amnisure negative) - Contraction Pattern Assessment Current Contraction Pattern: Irregular (6-8 mild) - FHR Assessment Pablo FHR (bpm): 130 (+ accels; no decels) FHR Pattern Variability: Moderate FHR Category: 1 Oxytocin Orders Assessment - Pre-Induction/Augmentation Assessment Gestational Age: 40 week(s) and 6 day(s) ICD10 Worksheet Patient Problems: Problems Problem Status Onset Cannabinoid hyperemesis syndrome Acute Supervision of normal in third trimester Acute
--- NOTE | 2018-07-29 11:34 | OBPROG ---
Labor Progress Note Assessment/Plan: Assessment: Plan: 07/29/18 08:30 Latent labor; probable SROM P) Start pitocin augmentation Avoid VE's unless indicated Epidural if desired Anticipate 07/29/18 11:34 Regular contractions on 8 mu/hr pitocin Advised to wait on VE reviewing increased risks of infection with ROM. Reassured that this provider is available should she need to start pushing and for now we can wait. Discussed that labor may be progressing quickly however it still may be awhile before she delivers. Subjective/Intrapartum Course: 07/29/18 05:12 Pt resting at this time, contractions have spaced out a bit since IV hydration provided. 07/29/18 08:27 Was able to get a little sleep last night. In the bathtub now. Contractions q 6 to 8 minutes, uncomfortable but not having to breath through them. States she felt another gush of fluid about an hour ago. Had reviewed with Cathy early this morning pitocin augmentation. Given elevated blood pressures, probable SROM, and post dates reassured that this is a good plan. Intends on waiting to get epidural as long as possible but ultimately thinks she will want one. Report minimal sleep since Saturday. 07/29/18 11:29 Starting to breathe through contractions; laughing with oil refinery operator and cad design engineer in between. States she is feeling a lot of downward pressure and thinks baby will be coming soon. Requesting VE. Objective: 07/29/18 03:15 07/29/18 03:12 Patient ABO/Rh B POSITIVE 07/29/18 03:12 Uric Acid 4.0 mg/dL (2.5-6.8) 07/29/18 03:12 Total Bilirubin 0.3 mg/dL (0.1-1.4) 07/29/18 03:12 Conjugated Bilirubin 0.2 mg/dL (0.0-0.5) 07/29/18 03:12 Unconjugated Bilirubin 0.1 mg/dL (0.0-1.1) 07/29/18 03:12 AST 19 IU/L (14-46) 07/29/18 03:12 ALT 22 IU/L (9-52) 07/29/18 03:12 Lactate Dehydrogenase 540 IU/L (313-618) 07/29/18 03:12 - SVE Membranes: SROM Amniotic Fluid Color: Clear - Contraction Pattern Assessment Current Contraction Pattern: Regular (q 2.5 to 3 minutes lasting a minute) CNM Assessment - Uterine Assessment Contraction Strength: Moderate Uterine Resting Tone: Palpates Soft Between Uterine Contractions Oxytocin Orders Assessment - Pre-Induction/Augmentation Assessment Gestational Age: 40 week(s) and 6 day(s) ICD10 Worksheet Patient Problems: Problems Problem Status Onset Cannabinoid hyperemesis syndrome Acute Supervision of normal in third trimester Acute
--- NOTE | 2018-07-29 12:53 | OBPROG ---
Labor Progress Note Assessment/Plan: Assessment: Plan: 07/29/18 08:30 Latent labor; probable SROM P) Start pitocin augmentation Avoid VE's unless indicated Epidural if desired Anticipate 07/29/18 11:34 Regular contractions on 8 mu/hr pitocin Advised to wait on VE reviewing increased risks of infection with ROM. Reassured that this provider is available should she need to start pushing and for now we can wait. Discussed that labor may be progressing quickly however it still may be awhile before she delivers. 07/29/18 12:52 Active labor P: Desires epidural now. Reassured that labor is progressing well. Anesthesia notified. Subjective/Intrapartum Course: 07/29/18 05:12 Pt resting at this time, contractions have spaced out a bit since IV hydration provided. 07/29/18 08:27 Was able to get a little sleep last night. In the bathtub now. Contractions q 6 to 8 minutes, uncomfortable but not having to breath through them. States she felt another gush of fluid about an hour ago. Had reviewed with Cathy early this morning pitocin augmentation. Given elevated blood pressures, probable SROM, and post dates reassured that this is a good plan. Intends on waiting to get epidural as long as possible but ultimately thinks she will want one. Report minimal sleep since Saturday. 07/29/18 11:29 Starting to breathe through contractions; laughing with audit associate and lithographic photographer apprentice in between. States she is feeling a lot of downward pressure and thinks baby will be coming soon. Requesting VE. 07/29/18 12:50 Adeola states she has UTP. Requesting VE. Has been breathing through and coping well. Objective: 07/29/18 03:15 07/29/18 03:12 Patient ABO/Rh B POSITIVE 07/29/18 03:12 Uric Acid 4.0 mg/dL (2.5-6.8) 07/29/18 03:12 Total Bilirubin 0.3 mg/dL (0.1-1.4) 07/29/18 03:12 Conjugated Bilirubin 0.2 mg/dL (0.0-0.5) 07/29/18 03:12 Unconjugated Bilirubin 0.1 mg/dL (0.0-1.1) 07/29/18 03:12 AST 19 IU/L (14-46) 07/29/18 03:12 ALT 22 IU/L (9-52) 07/29/18 03:12 Lactate Dehydrogenase 540 IU/L (313-618) 07/29/18 03:12 - SVE Dilation (cm): 6 Effacement (%): 80 Station: +1 Membranes: SROM Amniotic Fluid Color: Clear - Contraction Pattern Assessment Current Contraction Pattern: Regular (q 2 minutes) - FHR Assessment Palbo FHR (bpm): 120 (occasional early decel) FHR Pattern Variability: Moderate FHR Category: 1 CNM Assessment - Uterine Assessment Contraction Strength: Strong Uterine Resting Tone: Palpates Soft Between Uterine Contractions Oxytocin Orders Assessment - Pre-Induction/Augmentation Assessment Presentation: Vertex, Left Occiput Anterior Gestational Age: 40 week(s) and 6 day(s) Estimated Weight: 2501-3400g ICD10 Worksheet Patient Problems: Problems Problem Status Onset Cannabinoid hyperemesis syndrome Acute Supervision of normal in third trimester Acute
[2018-07-29] MEDS ORDERED: ONDANSETRON 4 MG/2 ML VIAL IVP PRN (13:00)
[2018-07-29] MEDS ORDERED: NALOXONE HCL 0.4 MG/ML INJ IVP PRN (13:00)
[2018-07-29] MEDS ORDERED: LR 500 ML IV SCH (13:00)
[2018-07-29] MEDS ORDERED: PHENYLEPHRINE HCL 100 MCG/ML SYR IVP PRN (13:00)
[2018-07-29] MEDS ORDERED: fentaNYL 2MCG/ML/BUP 0.1% RTU 100 ML EP SCH (13:00)
--- NOTE | 2018-07-29 13:03 | PREANESOB ---
Obstetric Pre-Anesthesia Info - General Info Proposed Procedure: Billy : 4 Para: 0 OLGA: 07/23/18 Gestational Age: 40 week(s) and 6 day(s) - Info Status: Full Term FHR Pattern: Reassuring - Labor Status Cervical Dilation per last OB SVE: 6 Station per last OB SVE: +1 Amniotic Fluid Color: Clear Indications for Labor Analgesia: Pain Control Anesthesia Allergies/Adverse Reactions: Allergy/AdvReac Type Severity Reaction Status Date / Time No Known Allergies Allergy Verified 06/20/18 10:58 Home Medications: Medication Instructions Recorded Famotidine [Pepcid] 20 mg PO BID #60 tablet 05/07/18 Vit27&Calcium/Iron/FA 1 tab PO DAILY 07/29/18 [] Visit Medications: Generic Name Dose Route Start Last Admin Trade Name Freq PRN Reason Stop Dose Admin Ammonia (Aromatic Spirit) 1 each 07/29/18 02:48 Ammonia Aromatic IH 08/08/18 02:47 ONCE PRN Fainting Diphenhydramine HCl 25 mg 07/29/18 02:51 07/29/18 03:50 Benadryl PO 01/25/19 02:50 25 mg HS PRN Administration Sleep/Insomnia Lactated Ringer's 1,000 mls @ 0 mls/hr 07/29/18 02:48 Lr IV 07/30/18 02:47 PRN PRN SEE PROTOCOL CONDITIONS Protocol Per Protocol Oxytocin/Lactated Ringer's 1,000 mls @ 0 mls/hr 07/29/18 02:48 Pitocin 20 Units/Lr (Premix) IV PRN PRN Post bleeding As Directed Lactated Ringer's 500 mls @ 500 mls/hr 07/29/18 05:17 Lr IV 07/30/18 05:18 PRN PRN Maternal Hypotension Oxytocin/Lactated Ringer's 500 mls @ 0 mls/hr 07/29/18 05:30 07/29/18 08:15 Pitocin 30 Units/Lr (Premix) IV 01/25/19 05:29 500 mls CONT LOGAN Administration Protocol Per Protocol Ibuprofen 600 mg 07/29/18 02:48 Motrin PO ONCE PRN post , pain Lidocaine HCl 300 mg 07/29/18 02:48 Lidocaine Hcl 1% SC 01/25/19 02:47 ONCE PRN episiotomy Magnesium Sulfate 454 gm 07/29/18 02:48 Epsom Salt TP 01/25/19 02:47 Q1H PRN perineal discomfort Misoprostol 800 - 1,000 mcg 07/29/18 02:48 Cytotec PO 01/25/19 02:47 ONCE PRN Vaginal Atony/Bleeding Bascom Oil 118 ml 07/29/18 02:48 Sweet Oil MISC 01/25/19 02:47 ONCE PRN perineal massage Terbutaline Sulfate 0.25 mg 07/29/18 02:48 Brethine IV 01/25/19 02:47 ONCE PRN Tachysystole Discontinued Medications Generic Name Dose Route Start Last Admin Trade Name Freq PRN Reason Stop Dose Admin Ammonia (Aromatic Spirit) Confirm 07/29/18 05:03 Ammonia Aromatic Administered 07/29/18 05:04 Dose 1 each IH .STK-MED ONE Lidocaine HCl Confirm 07/29/18 05:03 Lidocaine Hcl 1% Administered 07/29/18 05:04 Dose 300 mg .ROUTE .STK-MED ONE Misoprostol Confirm 07/29/18 05:03 Cytotec Administered 07/29/18 05:04 Dose 1,000 mcg .ROUTE .STK-MED ONE Bascom Oil Confirm 07/29/18 05:03 Sweet Oil Administered 07/29/18 05:04 Dose 118 ml .ROUTE .STK-MED ONE Oxytocin Confirm 07/29/18 05:03 Pitocin Administered 07/29/18 05:04 Dose 40 unit .ROUTE .STK-MED ONE Terbutaline Sulfate Confirm 07/29/18 05:03 Brethine Administered 07/29/18 05:04 Dose 1 mg .ROUTE .STK-MED ONE - Anesthesia History Response to Local Anesthetics: Normal Anesthesia & Operative History: No Prior Problems - Vital Signs Height/Weight (Nursing): Height 162.56 cm Weight 70.76 kg - Focused Exam Neck exam: spinal fusion Mouth exam: normal dental/mouth exam Pulmonary: no respiratory distress Labs: 07/29/18 03:15 07/29/18 03:12 Patient ABO/Rh B POSITIVE 07/29/18 03:12 Uric Acid 4.0 mg/dL (2.5-6.8) 07/29/18 03:12 Total Bilirubin 0.3 mg/dL (0.1-1.4) 07/29/18 03:12 Conjugated Bilirubin 0.2 mg/dL (0.0-0.5) 07/29/18 03:12 Unconjugated Bilirubin 0.1 mg/dL (0.0-1.1) 07/29/18 03:12 AST 19 IU/L (14-46) 07/29/18 03:12 ALT 22 IU/L (9-52) 07/29/18 03:12 Lactate Dehydrogenase 540 IU/L (313-618) 07/29/18 03:12 - Plan Consent Signed and on Chart: Yes Patient/Guardian Understands and Agrees to Plan: Yes Urgent/Emergent Case: Anes eval completed preop but documented later for safe timely pt care
[2018-07-29] MEDS ORDERED: fentaNYL 100 MCG/2 ML INJ ONE (13:07)
[2018-07-29] MEDS ORDERED: BUPIVACAINE 0.25% 10 ML SDV ONE (13:07)
--- NOTE | 2018-07-29 16:31 | OBDEL ---
Info Type: Vaginal Presentation at Delivery: Vertex L&D Analgesia/Anesthesia Type: Epidural GBS+: No Intrapartum Medications: Generic Name Dose Route Start Last Admin Trade Name David PRN Reason Stop Dose Admin Diphenhydramine HCl 25 mg 07/29/18 02:51 07/29/18 03:50 Benadryl PO 01/25/19 02:50 25 mg HS PRN Administration Sleep/Insomnia Oxytocin/Lactated Ringer's 500 mls @ 0 mls/hr 07/29/18 05:30 07/29/18 08:15 Pitocin 30 Units/Lr (Premix) IV 01/25/19 05:29 500 mls CONT LOGAN Administration Protocol Per Protocol - Hospital Course Intrapartum: 07/29/18 05:12 Pt resting at this time, contractions have spaced out a bit since IV hydration provided. 07/29/18 08:27 Was able to get a little sleep last night. In the bathtub now. Contractions q 6 to 8 minutes, uncomfortable but not having to breath through them. States she felt another gush of fluid about an hour ago. Had reviewed with Cathy early this morning pitocin augmentation. Given elevated blood pressures, probable SROM, and post dates reassured that this is a good plan. Intends on waiting to get epidural as long as possible but ultimately thinks she will want one. Report minimal sleep since Saturday. 07/29/18 11:29 Starting to breathe through contractions; laughing with mold sheet cleaner and photographer still in between. States she is feeling a lot of downward pressure and thinks baby will be coming soon. Requesting VE. 07/29/18 12:50 Adeola states she has UTP. Requesting VE. Has been breathing through and coping well. Indications for Delivery: SROM Vaginal Delivery - Delivery Provider Delivery Physician/CNM: Keily Cruz - Labor and Delivery Onset of Contractions Date: 07/29/18 Onset of Contractions Time: 11:45 Onset of Contractions Type: Augmented Rupture of Membranes Date: 07/29/18 Rupture of Membranes Time: 06:49 Rupture of Membranes Type: Spontaneous Amniotic Fluid Color: Clear Dilation Complete Date: 07/29/18 Dilation Complete Time: 15:34 Placenta Delivery Date: 07/29/18 Placenta Delivery Time: 16:15 Total Hours of Labor: 4 Laceration: 1st Degree Repair: 4-0, Vicryl (2 interrupted at the introitus to approximate) Vaginal Sponge Count Correct: Yes Vaginal Needle Count Correct: Yes Vaginal Sweep Performed: Yes EBL: 200 Delivery Events: None Delivery Comment: Adeola found to be complete at a +3 station; pushed strongly over 20 minutes to the of a vigorous female infant in an OA to ROT presentation. Baby was immediately placed on the mother's abdomen and gently stimulated. The cord was clamped x 2 and cut by the mother after done pulsating. The placenta delivered complete with a three vessel cord and intact membranes. The perineum, vagina and periurethral area was examined and a small 1st degree laceration was noted at the introitus. 2 interrupted suture placed for approximation due to location. Fundus massaged firm, bleeding minimal. EBL 200 ml - Medications Labor Augmentation/Induction Indication: Post Dates (Srom), Other (Specify) [place] Data OLGA: 07/23/18 Gestational Age: 40 week(s) and 6 day(s) Pablo Delivery Date: 07/29/18 Delivery Time: 16:06 Sex of : Female [place] Weight (gm): 2771 g Score (1 Min): 8 Score (5 Min): 9 ICD10 Worksheet Patient Problems: Problems Problem Status Onset Encounter for full-term uncomplicated delivery Acute Cannabinoid hyperemesis syndrome Acute Supervision of normal in third trimester Acute - ICD10 Problem Qualifiers (1) Encounter for full-term uncomplicated delivery
[2018-07-29] MEDS ORDERED: HYDROCORTISONE 0.5% CREAM TP PRN (16:38)
[2018-07-29] MEDS ORDERED: DOCUSATE SODIUM 100 MG CAP PO PRN (16:38)
[2018-07-29] MEDS ORDERED: ACETAMINOPHEN 325 MG TAB PO PRN (16:38)
[2018-07-29] MEDS ORDERED: IBUPROFEN 600 MG TAB PO ONE (16:57)
[2018-07-29] MEDS: IBUPROFEN 600 MG TAB PO SCH (22:35)
[2018-07-30] MEDS: IBUPROFEN 600 MG TAB PO SCH ×3 (05:54→19:49)
--- NOTE | 2018-07-30 12:35 | OBPP ---
Progress Note Assessment/Plan: Assessment: 28yo s/p PPD#1 Plan: routine PP care support PRN plan to d/c home tomorrow 07/30/18 12:32 Subjective/ Course: 07/30/18 12:35 pt doing well, she is happy and excited. She is in love with Leyda. She is , will work with today. She denies any pain or heavy bleeding. She is happy with her experience. Objective: 07/29/18 03:15 07/29/18 03:12 Patient ABO/Rh B POSITIVE 07/29/18 03:12 Uric Acid 4.0 mg/dL (2.5-6.8) 07/29/18 03:12 Total Bilirubin 0.3 mg/dL (0.1-1.4) 07/29/18 03:12 Conjugated Bilirubin 0.2 mg/dL (0.0-0.5) 07/29/18 03:12 Unconjugated Bilirubin 0.1 mg/dL (0.0-1.1) 07/29/18 03:12 AST 19 IU/L (14-46) 07/29/18 03:12 ALT 22 IU/L (9-52) 07/29/18 03:12 Lactate Dehydrogenase 540 IU/L (313-618) 07/29/18 03:12 Temp Pulse Resp BP Pulse Ox 37.0 C 102 H 16 128/84 H 95 07/30/18 08:33 07/30/18 08:33 07/30/18 08:33 07/30/18 10:41 07/30/18 08:33 Uterine Position/Fundal Height: Umbilicus -2, Midline Uterine Tone: Firm
--- NOTE | 2018-07-30 18:38 | POSTANESTH ---
Post Anesthetic Evaluation Cardiovascular Status: Normal, Stable Respiratory Status: Normal, Stable Level of Consciousness/Mental Status: Can Participate in Eval Pain Control: Adequate, Prn Tx Ordered Nausea/Vomiting Control: Adequate, Prn Tx Ordered Complications Possibly Related to Anesthesia: None Noted
[2018-07-31] MEDS: IBUPROFEN 600 MG TAB PO SCH ×3 (02:06→14:00)
[2018-07-31 08:41] VITALS: BP 127/86
[2018-07-31] MEDS ORDERED: FERROUS SULFATE 325 MG TAB PO SCH (10:45)
--- NOTE | 2018-07-31 11:02 | OBGCSDC ---
General Delivery Information - General Info : 4 Para: 1 Abortions: 3 Type: Vaginal L&D Analgesia/Anesthesia Type: Epidural Admission Date: 07/29/18 Labs: Patient ABO/Rh B POSITIVE 07/29/18 03:12 Hct 35.3 % (38.0-47.0) L 07/29/18 03:15 - Hospital Course Intrapartum: 07/29/18 05:12 Pt resting at this time, contractions have spaced out a bit since IV hydration provided. 07/29/18 08:27 Was able to get a little sleep last night. In the bathtub now. Contractions q 6 to 8 minutes, uncomfortable but not having to breath through them. States she felt another gush of fluid about an hour ago. Had reviewed with Cathy early this morning pitocin augmentation. Given elevated blood pressures, probable SROM, and post dates reassured that this is a good plan. Intends on waiting to get epidural as long as possible but ultimately thinks she will want one. Report minimal sleep since Saturday. 07/29/18 11:29 Starting to breathe through contractions; laughing with matrix bath operator and purchasing contracting clerk in between. States she is feeling a lot of downward pressure and thinks baby will be coming soon. Requesting VE. 07/29/18 12:50 Adeola states she has UTP. Requesting VE. Has been breathing through and coping well. : 07/30/18 12:35 pt doing well, she is happy and excited. She is in love with [employer]. She is , will work with today. She denies any pain or heavy bleeding. She is happy with her experience. 07/31/18 11:01 S) Pt doing well, reports min pain and bleeding. she is ambulating and voiding without difficulty. She is . She desires discharge home today. O) VSS, afebrile constitutional: WNWF, A&Ox3 HEENT: normocephalic, atraumatic, supple Heart: RRR, No murmur Chest: CTA-B Abdomen: Soft, nontender Uterus: Firm at U-2 Lochia: Minimal rubra Perineum: Intact, healing well Extremities: Trace edema, and negative Candice's sign Neuro: Grossly normal A) 28 year-old P 1 S/P PPD#2 P) Discharge home today Continue Pelvic rest x6wks Discussed danger signs (infection, preeclampsia, depression, heavy bleeding, etc) RTO in 2/4/6 weeks Vaginal - Delivery Provider Delivery Physician/CNM: Keily Cruz - Diagnosis Labor: Augmented Rupture of Membranes Type: Spontaneous Amniotic Fluid Color: Clear Laceration: 1st Degree Repair: 4-0, Vicryl (2 interrupted at the introitus to approximate) Delivery Events: None - Delivery EBL: 200 Data OLGA: 07/23/18 Gestational Age: 41 week(s) and 1 day(s) Pablo Delivery Date: 07/29/18 Delivery Time: 16:06 Sex of Infant: Female Weight (gm): 2771 g Score (1 Min): 8 Score (5 Min): 9 Discharge Information - Discharge Information Prescriptions: Ibuprofen [Motrin (*)] 600 mg PO Q6HRS #40 tab Docusate Sodium [Colace 100 MG (*)] 100 mg PO BID PRN #60 cap PRN Reason: Constipation Ferrous Sulfate [Ferrous Sulf 325 MG (*)] 325 mg PO DAILY #60 tab Condition: Good
== END 2018-07-31 14:15 | disposition home or self-care (01) | DRG 560 ==
LOC: FLD 02:10 → OBSVTOIN 02:49 → FOB 20:06
PROVIDERS: ADMIT Advanced Practice Midwife; ATTEND Advanced Practice Midwife
DX: O48.0 Post-term pregnancy (principal); O70.0 First degree perineal laceration during delivery; Z3A.41 41 weeks gestation of pregnancy; Z37.0 Single live birth
CPT/HCPCS: 80307; G0480; J2370; J2590; J3010; J3105

== ENCOUNTER → 2018-08-05 | Outpatient (CLI) | payer MEDICAID | LOC: FLACT 09:17 | PROVIDERS: ATTEND Pediatrics | DX: O92.13 Cracked nipple associated with lactation (principal) | CPT/HCPCS: G0463 ==